=== PATIENT | male | born 1980 | race African-American/Black ===

== ENCOUNTER 2018-01-24 21:28 | Emergency (ER) | payer SELFPAY ==
[~2018-01-24] VITALS: Ht 175.3 cm; Wt 108.0 kg
[~2018-01-24 21:28] MED LIST: TOBRAMYCIN0.3 % OP
[2018-01-24] MEDS ORDERED: ANTI-FUNGAL12 EX (21:58)
[2018-01-24] MEDS ORDERED: AUGMENTIN875TAB PO (21:58)
[2018-01-24] MEDS ORDERED: METRONIDAZOL500 MG PO (21:58)
[2018-01-24 22:29] VITALS: BP 142/74
== END 2018-01-24 22:32 | disposition home or self-care (01) | DRG 728 ==
LOC: ED 21:28
DX: N48.1 Balanitis (principal); F17.210 Nicotine dependence, cigarettes, uncomplicated; M54.30 Sciatica, unspecified side

== ENCOUNTER 2021-02-11 14:16 | Emergency (ER) | payer SELFPAY ==
[~2021-02-11] VITALS: Ht 175.3 cm; Wt 90.9 kg
[~2021-02-11 14:16] MED LIST changes: +ANTI-FUNGAL12 EX; +AUGMENTIN875TAB PO; +METRONIDAZOL500 MG PO
[2021-02-11] MEDS ORDERED: CEPHALEXIN500 M1 PO (15:02)
[2021-02-11] MEDS ORDERED: TERBINAFINE250 M1 PO (15:02)
[2021-02-11 15:03] VITALS: BP 138/90
== END 2021-02-11 15:10 | disposition home or self-care (01) | DRG 607 ==
LOC: ED 14:16
PROC: 0H9NXZZ Drainage of Left Foot Skin, External Approach (ICD-10-PCS; principal; 2021-02-11)
DX: B35.3 Tinea pedis (principal); L03.116 Cellulitis of left lower limb; F17.210 Nicotine dependence, cigarettes, uncomplicated